=== PATIENT | male | born 1960 | race Caucasian/White ===

== ENCOUNTER 2017-09-29 05:14 | Day surgery (SDC) | payer OTHER ==
[~2017-09-29] VITALS: Ht 175.3 cm; Wt 90.7 kg
--- NOTE | ~2017-09-29 | EKG ---
[address] [address] ELECTROCARDIOGRAM REPORT Name: FELICE HANSON Room #: 150-2 [facility]#: [id number] Admission: 09/29/17 Attend Phys: Felice Feliz MD Discharge: Date of : 64 Report #: [id number] THIS REPORT FOR: //name// [facility] Test Date: 2017-09-29 Test Time: 09:17:14 Pat Name: FELICE HANSON Department: Room: 150 2 Gender: M [employer] Operator: JUSTIN : 1960 Requested By: Felice Feliz Order Number: [id number] MD: Dat Garcia Measurements Intervals [place] Rate: 71 P: 53 ND: 144 QRS: 16 QRSD: 80 T: 50 QT: 382 QTc: 416 Interpretive Statements Sinus arrhythmia No significant abnormality No previous ECG available for comparison Electronically Signed On 09-30-2017 8:01:57 [employer] BODY REPAIR ESTIMATOR by Dat Garcia [email or web address] <ELECTRONICALLY SIGNED> By: Dat Garcia MD, [facility] 09/30/17 0801 0917 6 Dat Garcia MD, FACC /EPI
--- NOTE | ~2017-09-29 | O ---
[address] [address] OPERATIVE REPORT Name: GISELA HANSON Room #: DEP [facility].#: [id number] Admission: 09/29/17 Attend Phys: Gisela Feliz MD Discharge: 09/29/17 Date of : 64 Report #: [id number] THIS REPORT FOR: //name// CC: Toshia Feliz DATE OF SERVICE: 09/29/2017 SERVICE: Orthopedics. FACILITY: [facility]. SURGEON: Gisela Feliz MD QA TEST LEAD: None. PREOPERATIVE DIAGNOSES: 1. Displaced locked bucket handle medial meniscus tear. 2. Right knee pain. POSTOPERATIVE DIAGNOSES: 1. Displaced locked bucket handle medial meniscus tear. 2. Right knee pain. 3. Chondromalacia, right medial femoral condyle. COMPLICATIONS: None. DRAINS: None. SPECIMENS: None. PROCEDURE: Right knee arthroscopic partial medial meniscectomy with chondroplasty of the medial femoral condyle. ANESTHESIA: General. TOURNIQUET TIME: 37 minutes. FINDINGS: 1. Intact patellofemoral and lateral compartments. 2. Displaced bucket handle medial meniscus tear, chronic in appearance, treated with a partial meniscectomy. 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 He had an episode last week when [address] [address] OPERATIVE REPORT Name: GISELA HANSON Room #: DEP [facility]#: [id number] Admission: 09/29/17 Attend Phys: Gisela Feliz MD Discharge: 09/29/17 Date of : 64 Report #: [id number] the meniscus displaced and locked up the knee, and he was unable to achieve full range of motion. This was affecting his ability to perform his job, and he was interested in treatment avenue that allow him fastest return to work. MRI showed a displaced meniscus tear. Risks, benefits, alternatives and indication of surgery discussed with him in detail. Risks include but not limited to pain, bleeding, infection, injury to nerves or blood vessels, persistent pain despite surgical intervention, failure of any repairs or reconstructions, progression of any preexisting chondral injury, stiffness, need for further surgery as well as complications related to anesthesia such as stroke, heart attack, pulmonary complications, thromboembolic disease and . Despite these risks, he wished to proceed. PROCEDURE IN DETAIL: After right knee was correctly identified as the operative extremity, the patient was taken to the operating room, general anesthesia was induced without complication. He was padded appropriately. Prophylactic antibiotics were administered at appropriate time. Tourniquet was applied to the right thigh. Right lower extremity was prepped and draped in standard sterile fashion. Time-out procedure was performed. An Esmarch was used. The tourniquet was inflated to 250 mmHg. Total tourniquet time was 37 minutes. Standard anterolateral viewing portal followed by mid anterior working portal were established in the standard fashion. Diagnostic arthroscopy revealed chondral debris floating in the knee that was lavaged out of the knee synovial fluid. There was mild chondromalacia of the patellofemoral compartment with a low-grade partial thickness chondral wear in the trochlea. The ACL and PCL were intact. Lateral compartment was normal. Medial compartment was noted upon placement of the scope into the knee to have a displaced bucket handle meniscus tear, was flipped into the notch. The tissue here was frayed and not reparable, and there was some contraction of the tissue as well. A biter was used to trim the flipped meniscus at the anterior horn attachment, and then, meniscus was pushed into the notch to allow access to the posterior horn and root attachment. Approximately 80% of the meniscus was involved with this displaced tear. The majority meniscal body then displaced behind the medial femoral condyle, and a limited synovectomy was performed to allow visualization of the roots, and a biter and a shaver were used sequentially to truncate the body of the meniscus into small pieces allowing ventral access to the root attachment. This was trimmed at the base, allowing all resection of the meniscal debris, and then, the shaver was used to complete the contouring. There was noted to be grade 2 and 3 chondromalacia of the majority of the medial femoral condyle with about 50% of the weightbearing surface, and this was treated with a chondroplasty with the shaver. The leg was placed in a [id number] position and lateral compartment was evaluated and was found to be normal. All debris was lavaged out of the knee, the arthroscopic effusion was drained. The portal sites were closed with Monocryl stitch and then a total of 20 mL of [address] [address] OPERATIVE REPORT Name: GISELA HANSON [id number] Admission: 09/29/17 Attend Phys: Gisela Feliz MD Discharge: 09/29/17 Date of : 64 Report #: [id number] 0.25% Marcaine was infiltrated into the soft tissues for postoperative analgesia. Sterile dressing was applied, followed by compression stocking. The patient was awakened from anesthesia and taken to recovery room in stable condition. There were no complications. All counts were correct. <ELECTRONICALLY SIGNED> By: Gisela Feliz MD 10/05/17 1536 05 2149 Gisela Feliz MD /nt
[~2017-09-29 05:14] MED LIST: AUGMENTIN 875875 MG PO; CELESTONE30 MG/5 ML IM; COZAAR 50 MG TA50 M2 PO; DIFLUCAN200 MG PO; ECHINACEA500 MG PO; EXCEDRIN CAPLE1 EACH PO; FISH OIL 1,001000 M2 PO; NORCO 5-325 TA1 EACH PO; PREDNISONE 10 M10 MG PO; SORIATANE25 MG PO; TRAMADOL 50 MG50 MG PO; VITAMIN D1000 UNI1 PO; XANAX 0.5 MG0.5 MG PO; ZANTAC 150MG T150 MG PO; ZOVIRAX400 MG PO
== END 2017-09-29 14:30 | disposition home or self-care (01) ==
LOC: OR 05:14 → TBA 05:14 → OR 10:49
DX: M23.211 Derangement of anterior horn of medial meniscus due to old tear or injury, right knee (principal); M94.261 Chondromalacia, right knee; F32.9 Major depressive disorder, single episode, unspecified; F41.9 Anxiety disorder, unspecified; F17.210 Nicotine dependence, cigarettes, uncomplicated; Z98.890 Other specified postprocedural states; I12.9 Hypertensive chronic kidney disease with stage 1 through stage 4 chronic kidney disease, or unspecified chronic kidney disease; E11.22 Type 2 diabetes mellitus with diabetic chronic kidney disease; N18.3 Chronic kidney disease, stage 3 (moderate); K21.9 Gastro-esophageal reflux disease without esophagitis
CPT/HCPCS: 50010; 50101; 50405; 51038; 54170; 56527; 62110; 62900; 70005